=== PATIENT | female | born 1985 | race Caucasian/White ===

== ENCOUNTER → 2023-04-28 14:07 | Outpatient (REF) | payer OTHER, SELFPAY | LOC: PAVMRI 14:07 | PROVIDERS: ATTENDING PHYSICIAN Nurse Practitioner; FAMILY PHYSICIAN Family Medicine; REFERRING PHYSICIAN Internal Medicine Rheumatology | DX: G35 Multiple sclerosis (principal) | CPT/HCPCS: 70553; 72156; A9575 ==

== ENCOUNTER → 2023-04-30 13:59 | Outpatient (REF) | payer OTHER, SELFPAY | LOC: PAVMRI 13:59 | PROVIDERS: ATTENDING PHYSICIAN Nurse Practitioner; FAMILY PHYSICIAN Family Medicine; REFERRING PHYSICIAN Internal Medicine Rheumatology | DX: G35 Multiple sclerosis (principal) | CPT/HCPCS: 72157; A9575 ==

== ENCOUNTER → 2023-11-22 08:36 | Outpatient (REF) | payer OTHER, SELFPAY | LOC: WDC 08:36 | PROVIDERS: ATTENDING PHYSICIAN Obstetrics & Gynecology; FAMILY PHYSICIAN Family Medicine | DX: Z12.31 Encounter for screening mammogram for malignant neoplasm of breast (principal) | CPT/HCPCS: 77063; 77067 ==

== ENCOUNTER → 2024-04-19 17:38 | Outpatient (REF) | payer OTHER, SELFPAY | LOC: MRI 3T 17:38 | PROVIDERS: ATTENDING PHYSICIAN Nurse Practitioner; FAMILY PHYSICIAN Family Medicine | DX: G35 Multiple sclerosis (principal) | CPT/HCPCS: 70553; 72156; A9575 ==

== ENCOUNTER → 2024-04-21 13:30 | Outpatient (REF) | payer OTHER, SELFPAY | LOC: PAVMRI 13:30 | PROVIDERS: ATTENDING PHYSICIAN Nurse Practitioner | DX: G35 Multiple sclerosis (principal) | CPT/HCPCS: 72157; A9575 ==

== ENCOUNTER → 2024-11-24 08:49 | Outpatient (REF) | payer OTHER, SELFPAY | LOC: WDC 08:49 | PROVIDERS: ATTENDING PHYSICIAN Obstetrics & Gynecology; FAMILY PHYSICIAN Family Medicine | DX: Z12.31 Encounter for screening mammogram for malignant neoplasm of breast (principal) | CPT/HCPCS: 77063; 77067 ==

== ENCOUNTER → 2024-12-07 09:25 | Outpatient (REF) | payer OTHER, SELFPAY | LOC: WDC 09:25 | PROVIDERS: ATTENDING PHYSICIAN Obstetrics & Gynecology; FAMILY PHYSICIAN Family Medicine | DX: R92.8 Other abnormal and inconclusive findings on diagnostic imaging of breast (principal) | CPT/HCPCS: 76642 ==